=== PATIENT | female | born 1985 | race Caucasian/White ===

== ENCOUNTER 2020-08-03 13:39 | Emergency (ER) | payer OTHER ==
[2020-08-03 14:11] VITALS: BP 124/93; PULSE 92; RESP 20; TEMP 97.9
[2020-08-03] MEDS ORDERED: AMOXIC-POT CLAV 875-125MG 1 EACH TAB PO STA (14:16)
[2020-08-03] MEDS: LIDOCAINE 1% INJ 10MG/ML (20 ML MDV) SQ ONE ×2 (14:22→14:27)
[2020-08-03] MEDS ORDERED: HYDROcodone/APAP 5-325MG 1 EACH TAB PO STA (14:33)
--- NOTE | 2020-08-03 14:35 | ED ---
ENT HPI - General Chief complaint: Dental/Oral Stated complaint: Oral Pain Time Seen by Provider: 08/03/20 14:15 Source: patient Mode of arrival: ambulatory Limitations: no limitations - History of Present Illness Initial comments: 34-year-old female presenting to the emergency room with a chief complaint of dental pain. Patient reported started about 2-3 days ago with gradual increase in severity. Patient states she had a partially fractured tooth and she tried putting peroxide on it and pulling on it. She also reports a small dilatation bum" on the outside of the tooth. Patient reports the pain is not tolerable with [id number] analgesics. She denies any night sweats or chills. Does report mild swelling on the outside of the face. - Related Data Previous Rx's Medication Instructions Recorded Amoxicillin/Potassium Clav 1 tab PO Q12HR #20 tab 08/03/20 [Augmentin 875-125 Tablet] Hydrocodone/Acetaminophen [[place] 1 tab PO Q6HR PRN #12 tab 08/03/20 5-325] Allergies Allergy/AdvReac Type Severity Reaction Status Date / Time codeine Allergy dizziness Verified 08/03/20 14:11 ibuprofen [From Motrin] Allergy Nausea & Verified 08/03/20 14:11 Vomiting & Diarrhea Review of Systems ROS Statement: Those systems with pertinent positive or pertinent negative responses have been documented in the HPI. ROS Other: All systems not noted in ROS Statement are negative. Past Medical History Additional Past Medical History / Comment(s): ovarian cyst History of Any Multi-Drug Resistant Organisms: None Reported Past Surgical History: Section Additional Past Surgical History / Comment(s): neck surgery Past Psychological History: Anxiety, Bipolar, Depression Smoking Status: Current every day smoker Past Alcohol Use History: None Reported Past Drug Use History: Marijuana General Exam Limitations: no limitations General appearance: alert, in no apparent distress, obese Head exam: Present: atraumatic, normocephalic, normal inspection Eye exam: Present: normal appearance, PERRL, EOMI Pupils: Present: normal accommodation ENT exam: Present: normal exam, normal oropharynx (Dental abscess noted next to tooth #30 Which is partially fractured.), mucous membranes moist, TM's normal bilaterally, normal external ear exam, other (Very mild right-sided facial swelling where the abscess is located.) Neck exam: Present: normal inspection, full ROM. Absent: tenderness Respiratory exam: Present: normal lung sounds bilaterally. Absent: respiratory distress, wheezes, rales Cardiovascular Exam: Present: regular rate, normal rhythm, normal heart sounds. Absent: systolic murmur, diastolic murmur GI/Abdominal exam: Present: soft. Absent: distended, tenderness, guarding, rebound Extremities exam: Present: normal inspection, full ROM, normal capillary refill, other (+2 ulnar and radial pulses bilaterally.). Absent: tenderness, pedal edema, joint swelling, calf tenderness Back exam: Present: normal inspection, full ROM. Absent: tenderness, CVA tenderness (R), CVA tenderness (L) Neurological exam: Present: alert, oriented X3, normal gait Psychiatric exam: Present: normal affect, normal mood Skin exam: Present: warm, dry, intact, normal color Course Vital Signs 08/03/20 14:09 Temperature 97.9 F Pulse Rate 92 Respiratory 20 Rate Blood Pressure 124/93 O2 Sat by Pulse 98 Oximetry Procedures - Incision & Drainage Consent Obtained: verbal consent Indication: Dental abscess Site: oral Size (cm): 1 Sterile Field Used?: No Needle Aspiration Performed?: Yes Irrigation Performed?: No I&D Drainage Obtained: Pus, Blood Culture Obtained?: No Complications: pain, bleeding Patient Tolerated Procedure: well, no complications Medical Decision Making - Medical Decision Making 34-year-old female presenting to the emergency department with a chief complaint of ankle pain. On physical examination patient has a dental abscess near tooth #30. I was able to perform incision and drainage with an 18-gauge needle. A lo t of pus was removed. Patient started on Augmentin. She is ALLERGIC to codeine but is able to tolerate [place]. At discharge the patient with 12 days and [place] and give her thorough instructions but about side effects of medication. She also signed the narcotic awareness form. Advised to follow up with a dentist. We'll discharge her with 10 days of Augmentin. Return parameters discussed with patient is understanding and agreeable. Case discussed with physician. Disposition Clinical Impression: Pain, dental, Dental abscess Disposition: HOME SELF-CARE Condition: Stable Instructions (If sedation given, give patient instructions): Dental Abscess (ED), Abscess Incision and Drainage (ED) Additional Instructions: Take prescribed medication as directed. Follow up with a dentist. She was saltwater rinses. Return to emergency department if symptoms worsen. Prescriptions: Amoxicillin/Potassium Clav [Augmentin 875-125 Tablet] 1 tab PO Q12HR #20 tab Hydrocodone/Acetaminophen [[place] 5-325] 1 tab PO Q6HR PRN #12 tab PRN Reason: Pain Is patient prescribed a controlled substance at d/c from ED?: Yes If prescribed controlled substance>3 days was MAPS reviewed?: Prescribed <3 Days Referrals: None,Stated [Primary Care Provider] - 1-2 days Time of Disposition: 14:35
== END 2020-08-03 14:46 | disposition home or self-care (01) ==
LOC: EC 13:39
DX: K04.7 Periapical abscess without sinus (principal); F17.200 Nicotine dependence, unspecified, uncomplicated; Z88.5 Allergy status to narcotic agent; Z88.6 Allergy status to analgesic agent
CPT/HCPCS: 41800; 99282